=== PATIENT | male | born 1980 | race Caucasian/White ===

== ENCOUNTER 2021-01-26 11:35 | Emergency (ER) | payer SELFPAY ==
--- NOTE | 2021-01-26 12:15 | EDM.PDOC ---
ED HPI GENERAL MEDICAL PROBLEM - General Stated Complaint: FALL Time Seen by Provider: 01/26/21 12:00 Source of Information: Reports: Patient History Limitations: Reports: No Limitations - History of Present Illness INITIAL COMMENTS - FREE TEXT/NARRATIVE: Patient presented to the ED because of a fall from the parking lot at the [facility]. He doesn't have any pain, no LOC, headache, nausea or vomiting. He just want to be checked. - Related Data Allergies Allergy/AdvReac Type Severity Reaction Status Date / Time No Known Allergies Allergy Verified 01/26/21 11:51 Home Meds: Home Meds NK [No Known Home Meds] 01/26/21 [History] Social & Family History - Tobacco Use Tobacco Use Status *Q: Current Every Day Tobacco User Years of Tobacco use: 20 Packs/Tins Daily: 1 - Caffeine Use Caffeine Use: Reports: Coffee ED ROS GENERAL - Review of Systems Review Of Systems: See Below Constitutional: Reports: No Symptoms HEENT: Reports: No Symptoms Respiratory: Reports: No Symptoms Cardiovascular: Reports: No Symptoms Endocrine: Reports: No Symptoms GI/Abdominal: Reports: No Symptoms : Reports: No Symptoms Musculoskeletal: Reports: No Symptoms Skin: Reports: No Symptoms Neurological: Reports: No Symptoms Psychiatric: Reports: No Symptoms Hematologic/Lymphatic: Reports: No Symptoms ED EXAM, GENERAL - Physical Exam Exam: See Below Exam Limited By: No Limitations General Appearance: Alert, No Apparent Distress Eye Exam: Bilateral Eye: PERRL Ears: Normal External Exam, Normal Canal Nose: Normal Inspection, Normal Mucosa, No Blood Throat/Mouth: Normal Inspection, Normal Lips, Normal Teeth Head: Atraumatic, Normocephalic Neck: Normal Inspection, Supple, Non-Tender, Full Range of Motion Respiratory/Chest: No Respiratory Distress, Lungs Clear, Normal Breath Sounds, No Accessory Muscle Use, Chest Non-Tender Cardiovascular: Normal Peripheral Pulses, Regular Rate, Rhythm, No Edema, No Gallop, No JVD, No Murmur, No Rub GI/Abdominal: Normal Bowel Sounds, Soft, Non-Tender, No Organomegaly, No Distention, No Abnormal Bruit Back Exam: Normal Inspection, Full Range of Motion Extremities: Normal Inspection, Normal Range of Motion, Non-Tender, No Pedal Edema, Normal Capillary Refill Neurological: Alert, Oriented, CN II-XII Intact, Normal Cognition, Normal Gait, Normal Reflexes, No Motor/Sensory Deficits Psychiatric: Normal Affect Skin Exam: Warm Course - Vital Signs Text/Narrative:: Reassurance. Entirely normal exam and asymptomatic. Last Recorded V/S: Last Vital Signs Temp 36.8 C 01/26/21 11:53 Pulse 93 01/26/21 11:53 Resp 16 01/26/21 11:53 BP 155/103 H 01/26/21 11:53 Pulse Ox 96 01/26/21 11:53 Departure - Departure Time of Disposition: 12:30 Disposition: Home, Self-Care 01 Condition: Good Clinical Impression: Fall, Contusion - Discharge Information Instructions: Fall Prevention in the Home, Adult, [id number], Contusion, [id number] Forms: ED Department Discharge Additional Instructions: Please read discharge instructions on fall and contusion Return to the ED if you developed any headache, nausea,vomiting Follow up with your doctor with regards to your high blood pressure Sepsis Event Note (ED) - Evaluation Sepsis Screening Result: No Definite Risk - Focused Exam Vital Signs: Vital Signs Temp Pulse Resp BP Pulse Ox 01/26/21 11:53 36.8 C 93 16 155/103 H 96
== END 2021-01-26 12:36 | disposition home or self-care (01) ==
LOC: FB.ED 11:35
DX: S00.83XA Contusion of other part of head, initial encounter (principal); Z72.0 Tobacco use; W18.09XA Striking against other object with subsequent fall, initial encounter
CPT/HCPCS: 99283